=== PATIENT | female | born 1945 | race Caucasian/White ===

== ENCOUNTER → 2017-07-06 | Outpatient (CLI) | payer MEDICARE ==
[~2017-07-06] MED LIST: TAB-TAB PO
--- NOTE | 2017-07-08 10:04 | RSPPFT ---
DATE OF PROCEDURE: 07/06/17 COMMENTS: Spirometry with FVC of 2.5, FEV1 of 1.8, FEV1/FVC ratio at 72%. A non-significant response to acutely inhaled bronchodilator noted. Slow vital capacity is 89% of predicted. TLC is 111%. Diffusion capacity is 70% of predicted and normal when corrected for alveolar volume. IMPRESSION: 1. Moderately severe airways obstruction. 2. Non-significant response to acutely inhaled bronchodilator. 3. No evidence of airways restriction. 4. Mild reduction in diffusion capacity and normal when corrected for alveolar volume.
== END ==
LOC: HRSP 11:35
PROVIDERS: ATTEND Family Medicine
DX: J43.9 Emphysema, unspecified (principal)
CPT/HCPCS: 94060; 94726; 94729